=== PATIENT | male | born 1995 ===

== ENCOUNTER 2016-11-27 11:40 | Emergency (ER) | payer OTHER, SELFPAY ==
[2016-11-27 12:32] VITALS: BP 149/75; PULSE 85; RESP 18; TEMP 98; O2SAT 99; BMI 20.7
--- NOTE | 2016-11-27 13:05 | ED PDOC ---
Lower Extremity Pain/Injury Time Seen by Provider: 11/27/16 12:40 Chief Complaint (Nursing): Lower Extremity Problem/Injury Chief Complaint (Provider): Ankle Injury History Per: Patient History/Exam Limitations: no limitations Onset/Duration Of Symptoms: Days (yesterday) Current Symptoms Are (Timing): Better Severity: Mild Additional Complaint(s): William Barron is a 21 year old male, with no pertinent past medical history, who presents to the emergency department with complaints of ankle pain, that the patient has been experiencing since yesterday. Patient reports slipping and inverting his right ankle while playing basketball. The pain is worse with ambulation. He took Ibuprofen yesterday, with no medication today. PMD: none specified - Ankle/Foot Description Of Injury: Fell, Twisted Past Medical History Reviewed: Historical Data, Nursing Documentation, Vital Signs Vital Signs: Last Vital Signs Temp 98.0 F 11/27/16 12:26 Pulse 85 11/27/16 12:26 Resp 18 11/27/16 12:26 BP 149/75 11/27/16 12:26 Pulse Ox 99 11/27/16 12:26 - Medical History PMH: No Chronic Diseases - Surgical History Surgical History: No Surg Hx - Family History Family History: States: Unknown Family Hx - Living Arrangements Living Arrangements: With Family - Immunization History Hx Tetanus Toxoid Vaccination: Yes Hx Influenza Vaccination: No Hx Pneumococcal Vaccination: No - Home Medications Home Medications: Ambulatory Orders Medication Instructions Recorded Ibuprofen [Motrin] 400 mg PO Q8 #30 tab 11/10/14 Ibuprofen [Motrin] 1 tab PO Q8 PRN #21 tab 11/27/16 - Allergies Allergies/Adverse Reactions: Allergies Allergy/AdvReac Type Severity Reaction Status Date / Time No Known Allergies Allergy Verified 11/27/16 12:25 Review of Systems Musculoskeletal: Positive for: Foot Pain (right ankle) Skin: Negative for: Rash Neurological: Negative for: Weakness, Numbness Physical Exam - Reviewed Nursing Documentation Reviewed: Yes Vital Signs Reviewed: Yes - Physical Exam Appears: Positive for: Non-toxic, No Acute Distress Head Exam: Positive for: ATRAUMATIC, NORMOCEPHALIC Skin: Positive for: Normal Color, Dry Eye Exam: Positive for: Normal appearance Neck: Positive for: Normal, Painless ROM Respiratory: Negative for: Respiratory Distress Pulses-Dorsalis Pedis (R): 2+ Extremity: Positive for: Normal ROM, Other (right foot tenderness base of the fifth metatarsal and anterior lateral malleolous; denies ecchymosis). Negative for: Pedal Edema, Swelling Neurologic/Psych: Positive for: Alert, Oriented - ECG O2 Sat by Pulse Oximetry: 99 (RA) Pulse Ox Interpretation: Normal - Progress ED Course And Treament: XRY OF ANKLE: WNL XRY OF FOOT: IRREGULAR CUBOID BONE NOTED. D/W PODIATRY RESIDENT SEEN BY PODIATRY. PATIENT PLACED IN JENSEN SPLINT AND GIVEN CRUTCHES Medical Decision Making Medical Decision Makin:40 Initial Impression: Ankle sprain vs fracture Initial Plan: * Ankle and Foot X-Ray * Reevaluation Scribe Attestation: Documented by Alan Carcamo, training under Sinai Sears, acting as a scribe for Isaiah MORALES. Provider Scribe Attestation: All medical record entries made by the Scribe were at my direction and personally dictated by me. I have reviewed the chart and agree that the record accurately reflects my personal performance of the history, physical exam, medical decision making, and the department course for this patient. I have also personally directed, reviewed, and agree with the discharge instructions and disposition. Disposition - Clinical Impression Clinical Impression: Ankle injury - Patient ED Disposition Is Patient to be Admitted: No - Disposition Referrals: Podiatry Clinic [Outside] [place] See MD [Staff Provider] - Disposition: Routine/Home Disposition Time: 15:54 Condition: FAIR Additional Instructions: F/U WITH PODIATRY/DR. SEE ON SUNDAY. Prescriptions: Ibuprofen [Motrin] 1 tab PO Q8 PRN #21 tab PRN Reason: Pain, Moderate (4-7) Instructions: Foot Sprain (ED) Forms: [facility] ED School/Work Excuse
--- NOTE | 2016-11-27 15:26 | RAD ---
PROCEDURE: Right ankle dated 11/27/2016. HISTORY: ankle injury COMPARISON: Correlation made with concurrent radiographs of the right foot. FINDINGS: BONES: No evidence of acute displaced fracture nor dislocation. The osseous structures appear intact. Talar dome is intact. JOINTS: Ankle mortise maintained. No significant osteoarthritis. SOFT TISSUES: Mild soft tissue swelling lateral greater than medial. OTHER FINDINGS: None. IMPRESSION: No acute fracture seen. Followup studies could be performed if symptoms persist or occult fracture suspected clinically.
--- NOTE | 2016-11-27 15:26 | RAD ---
PROCEDURE: Right Foot Radiographs. HISTORY: comparison COMPARISON: None. FINDINGS: BONES: Normal. No fracture. JOINTS: Normal. SOFT TISSUES: Normal. OTHER FINDINGS: None. IMPRESSION: No radiographic evidence of acute fracture or dislocation.
--- NOTE | 2016-11-27 16:23 | CP.PCM.CON ---
History of Present Illness - History of Present Illness History of Present Illness: 21 y/o male with no pmhx seen at bedside in the ED for right foot injury. Patient states that he was playing basketball yesterday and twisted his foot upon landing. Patient states that he landed on the outside of the foot and noticed pain and swelling over the past 2 days. Patient states that he took motrin for the pain, and states that he could not walk at all yesterday. patient rates the pain a 4/10 today. He denies any other pedal complaints. patient denies any history of ankle sprains. Patient denies n/f/v/c/d/sob. Review of Systems - Constitutional Constitutional: As Per [facility] Meds Home Medications: Home Medication List Medication Instructions Recorded Confirmed Type Ibuprofen [Motrin] 1 tab PO Q8 PRN #21 tab 11/27/16 Rx Allergies/Adverse Reactions: Allergies Allergy/AdvReac Type Severity Reaction Status Date / Time No Known Allergies Allergy Verified 11/27/16 12:25 Physical Exam - Constitutional Appears: Well, Non-toxic, No Acute Distress - Extremities Exam Additional comments: right lower extremity focused: vasc: DP /PT 2/4, TG wnl, CFT < 3 sec to all digits, nonpitting edema to foot, no erythema neuro:grossly intact derm: no echymoses, nonpitting edema, no erythema, no open lesions, no acute clinical signs of infection ortho: pain on palpation along ATFL ligament, cuboid, pain on ankle PF, DF, inversion, no pain on eversion, muscle power 5/5 - Neurological Exam Neurological exam: Alert, Oriented x3 - Psychiatric Exam Psychiatric exam: Normal Affect, Normal Mood Results - Vital Signs Recent Vital Signs: Last Vital Signs Temp 98.0 F 11/27/16 12:26 Pulse 85 11/27/16 12:26 Resp 18 11/27/16 12:26 BP 149/75 11/27/16 12:26 Pulse Ox 99 11/27/16 16:05 Assessment & Plan - Assessment and Plan (Free Text) Assessment: 21 y.o male with no pmhx seen at bedside in the ED for right foot inversion injury s/p trauma Plan: patient evaluated and chart reviewed discussed in detail with attending Dr. See labs and vitals reviewed x rays of right foot and ankle show cortical irregularity of cuboid, possibly consistent with slight chip fx, no other acute dislocations or pathology noted applied posterior splint, dickson compression with webril and AARON to right lower extremity dispensed crutches and instructed patient to remain nonweightbearing patient to keep dressing clean,dry,intact until follow up appt. patient instructed to take motrin prn pain patient instructed to follow up with Dr. See in podiatry clinic at [facility]
== END 2016-11-27 16:24 | disposition home or self-care (01) ==
LOC: H.ER 11:40
DX: S99.911A Unspecified injury of right ankle, initial encounter (principal); W18.49XA Other slipping, tripping and stumbling without falling, initial encounter; Y93.67 Activity, basketball; Y92.9 Unspecified place or not applicable